=== PATIENT | female | born 1960 | race Two or more races ===

== ENCOUNTER 2018-02-25 08:26 | Emergency (ER) | payer BC ==
[~2018-02-25] VITALS: Ht 165.1 cm; Wt 113.4 kg
[~2018-02-25 08:26] MED LIST: ALBU90OI INH; AZIT250 PO; CHOLESTYRAMINE; FAMO40 PO; HYDACE5 PO; IBUP800 PO; LORA10ER PO; MULVITMINE; PRED20 PO; RXHYDACE PO; RXIBUP800 PO; [UNRECOGNIZED DRUG - OTHER]
[2018-02-25] MEDS ORDERED: Naprosyn500 MG PO (09:55)
== END 2018-02-25 10:02 | disposition home or self-care (01) ==
LOC: ER 08:26
DX: M75.91 Shoulder lesion, unspecified, right shoulder (principal); M70.852 Other soft tissue disorders related to use, overuse and pressure, left thigh; E11.9 Type 2 diabetes mellitus without complications
CPT/HCPCS: 73030; 73502; 99283-25

== ENCOUNTER → 2019-07-26 | Outpatient (CLI) | payer BC ==
[~2019-07-26] MED LIST changes: +Naprosyn500 MG PO
== END ==
LOC: PLD 07:21 → LAB SHORT 07:21
DX: D11.0 Benign neoplasm of parotid gland (principal)
CPT/HCPCS: 88173

== ENCOUNTER 2020-12-17 09:56 | Day surgery (SDC) | payer BC ==
[~2020-12-17] VITALS: Ht 165.1 cm; Wt 104.0 kg
[~2020-12-17 09:56] MED LIST changes: +METF500; +PRAVASTATIN SOD40 MG
--- NOTE | 2020-12-17 10:42 | NUR ---
12/17/20 1042 Brandon Hogan PATIENT INFORMED THAT IS DELAYED IN ANOTHER PROCEDURE AND HER CASE MAY BE DELAYED WELL. PATIENT RELAXED IN BED WITH CALL LIGHT IN REACH.
--- NOTE | 2020-12-17 13:23 | NUR ---
12/17/20 1323 Damaris Jade 0.25CC OF EPI 1:1000 MIXED INTO 50CC OF INJ. NACL TO MAKE 1:200,000 CONCENTRATION TO INJECT FOR HEMOSTASIS BEFORE INCISION. 3 CC USED AND INJECTED IN PTS LEFT SIDE OF FACE BY SURGEON
--- NOTE | 2020-12-17 15:24 | NUR ---
12/17/20 1524 Kalie Hoskins WHEEZES NOTED TO BILATERAL LUNGS. ALBUTEROL TREATMENT ORDERED BY DR. ZABALA. ALBUTEROL NEBULIZER ADMINISTERED. PT TOLERATED WELL. LUNG SOUNDS CLEAR.
== END 2020-12-17 17:15 | disposition home or self-care (01) ==
LOC: ORSCSDS 09:56
PROVIDERS: Otolaryngology
PROC: 0CB90ZZ Excision of Left Parotid Gland, Open Approach (ICD-10-PCS; principal; 2020-12-17 11:00)
DX: D11.0 Benign neoplasm of parotid gland (principal); E66.01 Morbid (severe) obesity due to excess calories; Z68.38 Body mass index [BMI] 38.0-38.9, adult; Z87.891 Personal history of nicotine dependence; E11.9 Type 2 diabetes mellitus without complications
CPT/HCPCS: 82947; 88307; A9270; J0171; J0330; J1100; J1170; J2250; J2370; J2405; J2704; J3010

== ENCOUNTER → 2022-09-28 | Outpatient (CLI) | payer SELFPAY | END | disposition home or self-care (01) | LOC: LAB 20:26 → LAB SHORT 20:26 | DX: N39.0 Urinary tract infection, site not specified (principal) | CPT/HCPCS: 87086 ==